=== PATIENT | male | born 1940 | race Caucasian/White ===

== ENCOUNTER 2022-09-04 09:48 | Outpatient (REF) | payer OTHER, SELFPAY ==
[2022-09-04 10:18] LABS: Anion Gap 16 (12-20); Blood Urea Nitrogen 16 mg/dL (9-16); Carbon Dioxide 24 mmol/L (22-29); Chloride 102 mmol/L (96-108); Estimated Glomerular Filt Rate > 60; Glucose Random 225 mg/dL (60-115); Potassium 4.1 mmol/L (3.3-5.1); Sodium 138 mmol/L (135-145)
== END 2022-09-04 09:49 | disposition home or self-care (01) ==
LOC: HO.HSH1N 09:48
PROVIDERS: Visit Provider Internal Medicine
DX: I48.91 Unspecified atrial fibrillation (principal)
CPT/HCPCS: 36415; 80048

== ENCOUNTER 2022-09-05 05:45 | Outpatient (REF) | payer OTHER, SELFPAY ==
[2022-09-05 07:36] LABS: MANUAL DIFF FLAG NO
[2022-09-05 07:41] LABS: Basophils Absolute Auto 0.1 X10*3/uL (0.0-0.2); Basophils Percent Auto 0.5 % (0-2); Eosinophils Percent Auto 0.1 % (0-4); Hemoglobin 13.5 g/dl (14.0-18.0); Imm Gran Abs Auto 0.09 X10*3/uL (0.00-0.03); Imm Gran Pct Auto 0.7 % (0.0-0.4); Lymphocytes Absolute Auto 2.1 X10*3/uL (1.2-4.9); Lymphocytes Percent Auto 15.9 % (20-40); Mean Corpuscular HGB Conc 32.9 g/dl (31.0-36.0); Mean Corpuscular Hemoglobin 29.8 pg (27.0-33.0); Mean Corpuscular Volume 90.5 fL (80.0-98.0); Mean Platelet Volume 10.7 fL (9.4-12.4); Monocytes Absolute Auto 1.2 X10*3/uL (0.1-1.2); Monocytes Percent Auto 9.2 % (2-11); Neutrophils Absolute Auto 9.6 x10*3/uL (2.0-8.3); Neutrophils Percent Auto 73.6 % (45-73); Platelet Count 235 X10*3/uL (160-400); Red Blood Count 4.53 X10*6/uL (4.60-5.80); Red Cell Distribution Width 13.6 % (11.0-16.0)
[2022-09-05 08:01] LABS: Anion Gap 14 (12-20); Blood Urea Nitrogen 24 mg/dL (9-16); Calcium 8.5 mg/dL (8.4-10.2); Carbon Dioxide 26 mmol/L (22-29); Chloride 102 mmol/L (96-108); Estimated Glomerular Filt Rate > 60; Glucose Fasting 149 mg/dL (60-99); Potassium 4.7 mmol/L (3.3-5.1); Sodium 137 mmol/L (135-145)
== END 2022-09-05 05:46 | disposition home or self-care (01) ==
LOC: HO.HSH1N 05:45
PROVIDERS: Visit Provider Internal Medicine
DX: R11.2 Nausea with vomiting, unspecified (principal)
CPT/HCPCS: 36415; 80048; 85025

== ENCOUNTER 2022-10-27 | Outpatient (REF) | payer OTHER, SELFPAY ==
[2022-10-27 08:18] LABS: Estimated Average Glucose 189 mg/dL; Hemoglobin A1c % 8.2 %
== END 2022-10-27 00:01 ==
LOC: HO.HSH3W
PROVIDERS: Visit Provider Internal Medicine Interventional Cardiology
DX: E11.9 Type 2 diabetes mellitus without complications (principal)
CPT/HCPCS: 36415; 83036

== ENCOUNTER 2023-01-13 05:35 | Outpatient (REF) | payer OTHER, SELFPAY ==
[2023-01-13 07:33] LABS: Estimated Average Glucose 229 mg/dL; Hemoglobin A1c % 9.6 %
[2023-01-13 08:04] LABS: Creatinine Urine 99.41 mg/dL
[2023-01-13 08:04] LABS: Alanine Aminotransferase 47 U/L (0-40); Albumin Level 3.4 g/dL (3.5-5.0); Alkaline Phosphatase 57 U/L (39-117); Anion Gap 14 (12-20); Aspartate Amino Transferase 18 U/L (5-37); Bilirubin Direct 0.2 mg/dL (0.0-0.5); Bilirubin Total 0.8 mg/dL (0.0-1.0); Blood Urea Nitrogen 17 mg/dL (9-16); Calcium 8.8 mg/dL (8.4-10.2); Carbon Dioxide 24 mmol/L (22-29); Chloride 105 mmol/L (96-108); Estimated Glomerular Filt Rate > 60; Glucose Random 265 mg/dL (60-115); Potassium 4.3 mmol/L (3.3-5.1); Sodium 139 mmol/L (135-145); Total Protein 5.4 g/dL (6.5-8.0)
== END 2023-01-13 05:36 | disposition home or self-care (01) ==
LOC: HO.HSH3W 05:35
PROVIDERS: Visit Provider Nurse Practitioner Acute Care
DX: E11.9 Type 2 diabetes mellitus without complications (principal)
CPT/HCPCS: 36415; 80053; 82043; 82248; 83036

== ENCOUNTER 2023-03-20 05:32 | Outpatient (REF) | payer OTHER, SELFPAY ==
[2023-03-20 07:55] LABS: Estimated Average Glucose 174 mg/dL; Hemoglobin A1c % 7.7 %
== END 2023-03-20 05:33 | disposition home or self-care (01) ==
LOC: HO.HSH3W 05:32
PROVIDERS: Nurse Practitioner; Visit Provider Internal Medicine Endocrinology, Diabetes & Metabolism
DX: E11.9 Type 2 diabetes mellitus without complications (principal)
CPT/HCPCS: 36415; 83036

== ENCOUNTER 2023-08-08 05:04 | Outpatient (REF) | payer OTHER, SELFPAY ==
[2023-08-08 06:24] LABS: MANUAL DIFF FLAG NO
[2023-08-08 06:28] LABS: Basophils Absolute Auto 0.1 X10*3/uL (0.0-0.2); Basophils Percent Auto 0.9 % (0-2); Eosinophils Absolute Auto 0.3 X10*3/uL (0.0-0.4); Eosinophils Percent Auto 3.1 % (0-4); Hematocrit 40.2 % (42.0-52.0); Hemoglobin 13.4 g/dl (14.0-18.0); Imm Gran Abs Auto 0.06 X10*3/uL (0.00-0.03); Imm Gran Pct Auto 0.7 % (0.0-0.4); Lymphocytes Absolute Auto 2.8 X10*3/uL (1.2-4.9); Lymphocytes Percent Auto 31.7 % (20-40); Mean Corpuscular HGB Conc 33.3 g/dl (31.0-36.0); Mean Corpuscular Hemoglobin 29.6 pg (27.0-33.0); Mean Corpuscular Volume 88.9 fL (80.0-98.0); Mean Platelet Volume 10.9 fL (9.4-12.4); Monocytes Absolute Auto 0.6 X10*3/uL (0.1-1.2); Monocytes Percent Auto 6.5 % (2-11); Neutrophils Percent Auto 57.1 % (45-73); Platelet Count 214 X10*3/uL (160-400); Red Blood Count 4.52 X10*6/uL (4.60-5.80); Red Cell Distribution Width 12.3 % (11.0-16.0); White Blood Count 8.8 X10*3/uL (4.8-10.8)
[2023-08-08 06:45] LABS: Alanine Aminotransferase 27 U/L (0-40); Albumin Level 3.5 g/dL (3.5-5.0); Alkaline Phosphatase 53 U/L (39-117); Anion Gap 15 (12-20); Aspartate Amino Transferase 14 U/L (5-37); Bilirubin Total 0.9 mg/dL (0.0-1.0); Blood Urea Nitrogen 15 mg/dL (9-16); Calcium 9.4 mg/dL (8.4-10.2); Carbon Dioxide 23 mmol/L (22-29); Chloride 107 mmol/L (96-108); Cholesterol 119 mg/dL (<200); Estimated Glomerular Filt Rate > 60; Glucose Fasting 225 mg/dL (60-99); HDL Cholesterol 33 mg/dL (>40); LDL Cholesterol Calculated 57 mg/dL (<100); Potassium 3.9 mmol/L (3.3-5.1); Sodium 141 mmol/L (135-145); Triglycerides 148 mg/dL (<150)
[2023-08-08 07:01] LABS: Estimated Average Glucose 235 mg/dL; Hemoglobin A1c % 9.8 % (<6.0)
== END 2023-08-08 05:05 | disposition home or self-care (01) ==
LOC: HO.HSH3W 05:04
PROVIDERS: Visit Provider Nurse Practitioner
DX: E11.9 Type 2 diabetes mellitus without complications (principal); I25.10 Atherosclerotic heart disease of native coronary artery without angina pectoris; E78.5 Hyperlipidemia, unspecified
CPT/HCPCS: 36415; 80053; 80061; 83036; 85025

== ENCOUNTER 2023-11-13 05:04 | Outpatient (REF) | payer OTHER, SELFPAY ==
[2023-11-13 06:39] LABS: MANUAL DIFF FLAG NO
[2023-11-13 06:53] LABS: Basophils Absolute Auto 0.1 X10*3/uL (0.0-0.2); Basophils Percent Auto 0.7 % (0-2); Eosinophils Absolute Auto 0.2 X10*3/uL (0.0-0.4); Eosinophils Percent Auto 2.6 % (0-4); Hematocrit 39.7 % (42.0-52.0); Hemoglobin 13.5 g/dl (14.0-18.0); Imm Gran Abs Auto 0.09 X10*3/uL (0.00-0.03); Lymphocytes Absolute Auto 2.8 X10*3/uL (1.2-4.9); Lymphocytes Percent Auto 30.5 % (20-40); Mean Corpuscular Hemoglobin 30.3 pg (27.0-33.0); Mean Platelet Volume 10.6 fL (9.4-12.4); Monocytes Absolute Auto 0.6 X10*3/uL (0.1-1.2); Monocytes Percent Auto 6.2 % (2-11); Neutrophils Absolute Auto 5.3 x10*3/uL (2.0-8.3); Platelet Count 212 X10*3/uL (160-400); Red Blood Count 4.46 X10*6/uL (4.60-5.80); Red Cell Distribution Width 12.4 % (11.0-16.0)
[2023-11-13 07:08] LABS: Estimated Average Glucose 212 mg/dL
[2023-11-13 07:12] LABS: Alanine Aminotransferase 29 U/L (0-40); Albumin Level 3.4 g/dL (3.5-5.0); Alkaline Phosphatase 51 U/L (39-117); Anion Gap 14 (12-20); Aspartate Amino Transferase 13 U/L (5-37); Bilirubin Total 0.8 mg/dL (0.0-1.0); Blood Urea Nitrogen 14 mg/dL (9-16); Calcium 9.1 mg/dL (8.4-10.2); Carbon Dioxide 23 mmol/L (22-29); Chloride 106 mmol/L (96-108); Estimated Glomerular Filt Rate > 60; Glucose Fasting 176 mg/dL (60-99); Sodium 139 mmol/L (135-145); Total Protein 5.7 g/dL (6.5-8.0)
== END 2023-11-13 05:05 | disposition home or self-care (01) ==
LOC: HO.HSH3W 05:04
PROVIDERS: Visit Provider Nurse Practitioner Acute Care
DX: E11.9 Type 2 diabetes mellitus without complications (principal); I48.91 Unspecified atrial fibrillation
CPT/HCPCS: 36415; 80053; 83036; 85025

== ENCOUNTER 2024-05-08 06:08 | Outpatient (REF) | payer OTHER, SELFPAY ==
[2024-05-08 06:41] LABS: Estimated Average Glucose 192 mg/dL; Hemoglobin A1c % 8.3 % (<6.0)
[2024-05-08 06:43] LABS: Alanine Aminotransferase 21 U/L (0-40); Albumin Level 3.6 g/dL (3.5-5.0); Alkaline Phosphatase 49 U/L (39-117); Anion Gap 11 (12-20); Aspartate Amino Transferase 11 U/L (5-37); Bilirubin Total 0.9 mg/dL (0.0-1.0); Blood Urea Nitrogen 20 mg/dL (9-16); Calcium 9.5 mg/dL (8.4-10.2); Carbon Dioxide 25 mmol/L (22-29); Chloride 109 mmol/L (96-108); Estimated Glomerular Filt Rate > 60; Glucose Random 109 mg/dL (60-115); Potassium 4.1 mmol/L (3.3-5.1); Sodium 141 mmol/L (135-145); Total Protein 5.9 g/dL (6.5-8.0)
== END 2024-05-08 06:09 | disposition home or self-care (01) ==
LOC: HO.HSH3W 06:08
PROVIDERS: Visit Provider Nurse Practitioner
DX: E11.9 Type 2 diabetes mellitus without complications (principal)
CPT/HCPCS: 36415; 80053; 83036

== ENCOUNTER 2024-08-22 06:04 | Outpatient (REF) | payer OTHER, SELFPAY ==
[2024-08-22 06:08] LABS: MANUAL DIFF FLAG NO
[2024-08-22 06:26] LABS: Basophils Absolute Auto 0.1 X10*3/uL (0.0-0.2); Basophils Percent Auto 0.7 % (0-2); Eosinophils Absolute Auto 0.3 X10*3/uL (0.0-0.4); Eosinophils Percent Auto 3.4 % (0-4); Hemoglobin 13.9 g/dl (14.0-18.0); Imm Gran Abs Auto 0.04 X10*3/uL (0.00-0.03); Imm Gran Pct Auto 0.4 % (0.0-0.4); Lymphocytes Absolute Auto 2.9 X10*3/uL (1.2-4.9); Lymphocytes Percent Auto 31.8 % (20-40); Mean Corpuscular HGB Conc 33.9 g/dl (31.0-36.0); Mean Corpuscular Hemoglobin 30.2 pg (27.0-33.0); Mean Corpuscular Volume 88.9 fL (80.0-98.0); Mean Platelet Volume 10.7 fL (9.4-12.4); Monocytes Absolute Auto 0.6 X10*3/uL (0.1-1.2); Monocytes Percent Auto 6.4 % (2-11); Neutrophils Absolute Auto 5.2 x10*3/uL (2.0-8.3); Neutrophils Percent Auto 57.3 % (45-73); Platelet Count 206 X10*3/uL (160-400); Red Blood Count 4.61 X10*6/uL (4.60-5.80); Red Cell Distribution Width 12.9 % (11.0-16.0); White Blood Count 9.1 X10*3/uL (4.8-10.8)
[2024-08-22 06:36] LABS: Alanine Aminotransferase 37 U/L (0-40); Albumin Level 3.5 g/dL (3.5-5.0); Alkaline Phosphatase 50 U/L (39-117); Anion Gap 15 (12-20); Aspartate Amino Transferase 16 U/L (5-37); Bilirubin Total 1.3 mg/dL (0.0-1.0); Blood Urea Nitrogen 29 mg/dL (9-16); Calcium 9.4 mg/dL (8.4-10.2); Carbon Dioxide 23 mmol/L (22-29); Chloride 104 mmol/L (96-108); Cholesterol 115 mg/dL (<200); Estimated Glomerular Filt Rate > 60; Glucose Random 305 mg/dL (60-115); Potassium 4.3 mmol/L (3.3-5.1); Sodium 138 mmol/L (135-145)
[2024-08-22 07:04] LABS: Prostate Specific Antigen 0.56 ng/mL (<0.05-4.0); Vitamin B12 381 pg/mL (200-900)
[2024-08-22 07:13] LABS: Estimated Average Glucose 220 mg/dL; Hemoglobin A1C 286.2529 umol/L; Hemoglobin A1c % 9.3 % (<6.0); Total Hemoglobin (HGBA1C) 3646.8802 umol/L
== END 2024-08-22 06:05 | disposition home or self-care (01) ==
LOC: HO.HSH3W 06:04
PROVIDERS: Visit Provider Nurse Practitioner
DX: Z12.5 Encounter for screening for malignant neoplasm of prostate (principal); E11.9 Type 2 diabetes mellitus without complications; I63.9 Cerebral infarction, unspecified
CPT/HCPCS: 36415; 80053; 82465; 82607; 83036; 84153; 85025

== ENCOUNTER 2024-12-18 07:06 | Outpatient (REF) | payer MEDICAID, SELFPAY ==
--- OUTSIDE RECORDS SUMMARY | 2024-12-18 07:10 | XMS_ITS | Encounter Summary ---
Author Name [facility] [place] [facility] [place] [facility] [place] Address [address] [place] [address] Care Team Providers Care Ship Cleaner Name Role Phone HERACLIO LUNA Primary Care Provider Unav ailable YOHAN, ALESSANDRA Unavailable Unavailable EMERALD MONIQUE Primary Care Provider Unavail able Insurance Providers: All historical and current Section Date Range: From patient's date of to the date document was created. This section includes the names of all active insurance providers for the patient. Insurance Provider Type of Coverage Plan Name Start of Policy Coverage End of Policy Coverage Group Number Member ID Insurance Provider's Telephone Number Policy [place]'s Name Patient's Relationship to Policy [place] [facility] (WNR) MEDICARE ADVANTAGE [facility] (WNR) February 07, 2020 [id number] SHARONDA,TONI LLY PATIENT [facility] (WNR) MEDICARE ADVANTAGE [facility] (WNR) February 07, 2020 [id number] SHARONDA,BI LLY PATIENT [facility] (WNR) MEDICARE [facility] (WNR) February 07, 2020 [id number] TONI MCDONOUGH PATIENT Selected Encounter This section includes the information on record at [place] for the Encounter. Date/Time Encounter Type Encounter Description Reason Pro vider Source Dec 03, 2024 07:19 AM Outpatient Encounter [facility] Encounter Template Text not used by [place] Plan of Treatment: Future Appointments (+ 6 months) and Future Tests (+/- 45 days) The Plan of Treatment section includes future care activities for the patient from all [place] treatmentfacilities. This section includes future appointments and future orders which are active, pending or scheduled. Future Appointments This section includes appointments that were scheduled to occur 6 months from the date of the Encounter, up to a maximum of 20 appointments. The data comes from all [place] treatment facilities. Appointment Date/Time Appointment Type Appointme nt Facility Name Dec 17, 2024 01:30 PM AMBULATORY - REH[facility] MEDICIN [facility] [place] [facility] Encounter Notes: All associated encounter notes This section contains the clinical notes associated to the Encounter. Date/Time Encounter Note(s) Provider Source Dec 03, 2024 07:19 AM OCCUPATIONAL THERA PY NOTE: LOCAL TITLE: OCCUPATIONAL THERAPY STANDARD TITLE: OCCUPATIONAL THERAPY NOTE DATE OF NOTE: DEC 03, 2024@07:19 ENTRY DATE: DEC 03, 2024@07:19:11 AUTHOR: THEODORE NUNO EXP COSIGNER: URGENCY: STATUS: COMPLETED OCCUPATIONAL THERAPY Has ADDENDA manager outreach, [address], requesting evaluation for to see if a power tilt option can be added to current [id number] in order for pt to be more independent with seating functions. Type of chair issued: Quickie IRIS 19 x [address] back, ELR's and Héctor Fusion cushion Serial #: [id number] Appointment scheduled for 12/17/24 @ 1:00. Will be seen at the [facility]. /jori NUNO OTR/L OCCUPATIONAL THERAPIST Signed: 12/03/2024 07:21 12/03/2024 ADDENDUM STATUS: COMPLETED Correction- appointment at 1:30. /jori NUNO OTR/L OCCUPATIONAL THERAPIST Signed: 12/03/2024 07:21 THEODORE NUNO [facility]
--- OUTSIDE RECORDS SUMMARY | 2024-12-18 07:10 | XMS_ITS | Continuity of Care Document ---
Author Name [facility] Organization [facility] Care Team Providers Care Binding Dyer Name Role Phone [facility] Unavailable Unavailable Problems Combined list of problems from Department of Defense and Veterans Affairs facilities. It does not include entries that were removed or entered in error. Problem Status Onset Date Problem Type Date of Resolution Comments Source AF- Atrial Fibrillation ([facility] [id number]) Active Condition [place] Atrial fibrillation Active Condition [facility] Benign prostatic hyperplasia Active Condition [place] CAD - Coronary artery disease Active Condition [place] Cerebral infarction Active Condition [place] Cerebral infarction Active Condition Sep 07, 2020 Entered By: JUDITH LUCIO [facility] Entered By: ÁNGEL BARLOW Comment: CVA, approx MARCH 28 [facility] Coronary artery disease Active Condition Oct 28, 2020 Entered By: BRYAN SARAVIA Comment: Stent LAD 05/2017 [place] 2020 Entered By: BRYAN SARAVIA Comment: L hemiparesis/ne uropathy [facility] [place] [facility] Diabetes mellitus Active Condition [place] elderly Active Condition [place] Hyperlipidemia Active Condition [place] Hyperlipidemia ([facility] [id number]) Active Condition [facility] [place] [facility] Type 2 diabetes mellitus Active [facility] Vitamin D Deficiency ([facility] [id number]) Active Condition [place] Diagnosis: ICD-10-CM I63.9 Cerebral infarction, unspecified Active Diagnosis [facility] [place] [facility] Medications Combined list of outpatient medications from Department of Defense and Veterans Affairs facilities.Medications provided include 1) outpatient medications from the last 15 months, and 2) patient-reported medications. Medication Details Route Status Patient Instructions Prescription Expires Prescription Number Last Dispense Date Ordering Provider Order Date Order Qty Source ACETAMINOPH EN 325MG TAB TAKE TWO TABLETS BY MOUTH EVERY DAY NEEDED ORAL ACTIVE EMERALD MONIQUE 2014 GARC[facility] ASPIRIN 81MG TAB,EC TAKE ONE TABLET BY MOUTH EVERY DAY ORAL ACTIVE SCHWAIEMERALD CORTES 2014 GARCIA BISACODYL 10MG SUPP,RTL INSERT 1 SUPPOSIT ORY(IES) IN RECTUM EVERY DAY NEEDED RECTAL ACTIVE SCHWAIEMERALD CORTES A 2019 GARCIA DOCUSATE NA 50MG/SENNOS IDES 8.6MG TAB TAKE ONE TABLET BY MOUTH TWICE A DAY NEEDED ORAL ACTIVE SCHWAIEMERALD CORTES A 2019 G[facility]IA INSULIN,ASP ART FLEXPEN (*HIGH ALERT*) INJ INJECT 5 UNITS UNDER THE SKIN TID WITH MEALS SUBCUT ANEOUS ACTIVE SCHWAIGER EMERALD A 2019 G[facility]IA INSULIN,GLA RGINE VIAL (*HIGH ALERT*) INJ INJECT 40 UNITS UNDER THE SKIN NIGHTLY SUBCUT ANEOUS ACTIVE SCHWAIJANAY CORTESH A 2019 G[facility]IA MELATONIN 3MG CAP/TAB TAKE 1 BY MOUTH AT BEDTIME ORAL ACTIVE SCHWAIEMERALD CORTES 2019 G[facility] Immunizations Combined list of available immunizations from the Department of Defense and Veterans Affairs facilities. Immunization Series Date Given Administered By Site Reaction Lot Number CVX Code Drug Web Press Jogger Status Comments Source INFLUENZA, HIGH-DOSE, QUADRIVALENT 2019 197 complet ed [facility] INFLUENZA, UNSPECIFIED FORMULATION 2019 88 complet ed [facility] [place] [facility] PNEUMOCOCCAL CONJUGATE PCV 13 2014 133 complet ed [place] INFLUENZA, PRESERVATIVE FREE (HISTORICAL) 2013 88 complet ed [place] PNEUMOCOCCAL POLYSACCHARID E PPV23 2012 33 complet ed [place] TDAP 2012 115 complet ed [place] HEP A-HEP B 2011 104 complet ed Recieved faxed immunizat ion records. Copy is in scanning unit. JULIO CÉSAR Encounters Combined list of: 1) Encounters from Department of Veterans Affairs facilities going backup to the last 18 months, not all VA inpatient encounters are included; 2) Encounters from the Department of Defense facilities going backup to 280 months. Location Location Details Encounter Type Encounter Number Reason For Visit Attending Provider ADM Date DC Date Status Disposition Source [facility] [place] [facility] Outpatient Encounter [id number] 07/04 [facility] Outpatient Encounter [id number] 11/01 [facility] [id number] Diagnos is: ICD-10- CM I63.9 Cerebra l infarct ion, unspeci fied NUNO,BRANDON ICA L 11/01 [facility] Out[facility] Encounter [id number] 01/16 [facility] [id number] Diagnos is: ICD-10- CM I63.9 Cerebra l infarct ion, unspeci fied NUNO,BRANDON ICA L 04/04 [facility] [place] [facility] Outpatient Encounter [id number] 12/03 [facility] [place] [facility] TRAINING [id number] Diagnos is: ICD-10- CM I63.9 Cerebra l infarct ion, unspeci fied NUNO,BRANDON ICA L 12/17 [facility] [place] [facility] Social History Combined list of available smoking, tobacco, and other social history from Department of Defense and Veterans Affairs facilities. Social History Type Response Date Comment [facility] e Tobacco smoking status [facility] VA-TOBACCO NEVER USED 09/07/20 [place] History of tobacco use VA-TOBACCO FORMER USER 05/08/2019 [place] History of tobacco use DAY TOBACCO FORME R USER >7 YEARS 05/01/2018 [place] History of tobacco use DAY TOBACCO FORME R USER >7 YEARS 05/10/2017 [place] History of tobacco use DAY TOBACCO FORME R USER >7 YEARS 03/03/2015 [facility]
--- OUTSIDE RECORDS SUMMARY | 2024-12-18 07:10 | XMS_ITS | Encounter Summary ---
Author Name [facility] [place] [facility] [place] [facility] [place] Address [address] [place] [address] Care Team Providers Care Electronic Scale Assembler And Tester Name Role Phone EMERALD MONIQUE Primary Care Provider Unavail HERACLIO Paz Primary Care Provider Unav ailable ALESSANDRA ALMANZAR Unavailable Unavailable Insurance Providers: All historical and current Section Date Range: From patient's date of to the date document was created. This section includes the names of all active insurance providers for the patient. Insurance Provider Type of Coverage Plan Name Start of Policy Coverage End of Policy Coverage Group Number Member ID Insurance Provider's Telephone Number Policy [place]'s Name Patient's Relationship to Policy [place] [facility] (WNR) MEDICARE ADVANTAGE [facility] (WNR) February 07, 2020 [id number] SHARONDA,BI LLY PATIENT [facility] (WNR) MEDICARE [facility] (WNR) February 07, 2020 [id number] 73 SHARONDA,BI LLY PATIENT [facility] (WNR) MEDICARE ADVANTAGE [facility] (WNR) February 07, 2020 [id number] TONI MCDONOUGH PATIENT Selected Encounter This section includes the information on record at [place] for the Encounter. Date/Time Encounter Type Encounter Description Reason Provider Source Dec 17, 2024 01:30 PM [facility]ELCHAIR [facility] TRA[facility] ICD-10-CM I63.9 Cerebral infarction, unspecified THEODORE NUNO IHE Encounter Template Text not used by VA Assessments - Encounter Diagnoses This section includes the primary and secondary diagnoses documented for the Encounter. Date/Time Primary/Secondary Diagnosis Diagnosis Name Provider Source Dec 17, 2024 03:39 PM PRIMARY Cerebral infarction, unspecified [facility]O [facility]
[2024-12-18 07:37] LABS: Estimated Average Glucose 194 mg/dL; Hemoglobin A1c % 8.4 % (<6.0); Total Hemoglobin (HGBA1C) 3445.8706 umol/L
== END 2024-12-18 07:07 | disposition home or self-care (01) ==
LOC: HO.HSH 07:06
PROVIDERS: Visit Provider Nurse Practitioner
DX: E11.9 Type 2 diabetes mellitus without complications (principal)
CPT/HCPCS: 36415; 83036

== ENCOUNTER 2025-04-19 06:50 | Outpatient (REF) | payer MEDICARE, MEDICAID, SELFPAY | END 2025-04-19 06:51 | disposition home or self-care (01) | LOC: HO.HSH3N 06:50 | PROVIDERS: Visit Provider Nurse Practitioner | DX: Z13.89 Encounter for screening for other disorder (principal) | CPT/HCPCS: 82043; 82570 ==

== ENCOUNTER 2025-05-28 06:44 | Outpatient (REF) | payer MEDICARE, MEDICAID, SELFPAY ==
--- OUTSIDE RECORDS SUMMARY | 2025-04-16 06:56 | XMS_ITS | Continuity of Care Document ---
Author Name [facility] Organization [facility] Care Team Providers Care Social Professionals Name Role Phone [facility] Unavailable Unavailable Problems Combined list of problems from Department of Defense and Veterans Affairs facilities. It does not include entries that were removed or entered in error. Problem Status Onset Date Problem Type Date of Resolution Comments Source AF- Atrial Fibrillation ([facility] [id number]) Active Condition [place] Atrial fibrillation Active Condition [facility] Benign prostatic hyperplasia Active Condition [place] CAD - Coronary artery disease Active Condition [place] Cerebral infarction Active Condition [place] Cerebral infarction Active Condition Sep 07, 2020 Entered By: JUDITH LUCIO Comment[facility] Entered By: ÁNGEL BARLOW Comment: CVA, approx MARCH 28 [facility] Coronary artery disease Active Condition Oct 28, 2020 Entered By: BRYAN SARAVIA Comment: Stent LAD 05/2017 [place] 2020 Entered By: RBYAN SARAVIA Comment: L hemiparesis/ne uropathy [facility] [place] [facility] Diabetes mellitus Active Condition [place] elderly Active Condition [place] Hyperlipidemia Active Condition [place] Hyperlipidemia ([facility] 21428687) Active Condition [facility] [place] [facility] Type 2 diabetes mellitus Active [facility] Vitamin D Deficiency ([facility] 9413307) Active Condition [place] Diagnosis: ICD-10-CM I63.9 Cerebral infarction, unspecified Active Diagnosis [facility] [place] [facility] Medications Combined list of outpatient medications [...] Site Reaction Lot Number CVX Code Drug Radiation Safety Officer Status Comments Source INFLUENZA, HIGH-DOSE, QUADRIVALENT 2019 197 complet ed [facility] INFLUENZA, UNSPECIFIED FORMULATION 2019 88 complet ed [facility] [place] [facility] PNEUMOCOCCAL CONJUGATE PCV 13 2014 133 complet ed [place] INFLUENZA, PRESERVATIVE FREE (HISTORICAL) 2013 88 complet ed [place] PNEUMOCOCCAL POLYSACCHARID E PPV23 2012 33 complet ed [place] TDAP 2012 115 complet ed [place] HEP A-HEP B 2011 104 complet ed [...] ADM Date DC Date Status Disposition Source [facility] [place] [facility] Outpatient Encounter [id number] 01/16 [facility] [place] [facility] [place] [facility] [id number] Diagnos is: ICD-10- CM I63.9 Cerebra l infarct ion, unspeci fied NUNO,BRANDON ICA L 04/04 [facility] [place] [facility] [place] [facility] Outpatient Encounter [id number] 12/03 [facility] [place] [facility] [place] [facility] TRAIN[facility] [id number] Diagnos is: ICD-10- CM I63.9 Cerebra l infarct ion, unspeci fied NUNO,BRANDON ICA L 12/17 [facility] [place] [facility] [place] [facility] Outpatient Encounter [id number] 04/16 [facility] [place] [facility] Social History Combined list of available smoking, tobacco, and other social history from Department of Defense and Veterans Affairs facilities. Social History Type Response Date Comment [facility] Tobacco smoking status [facility] VA-TOBACCO NEVER USED 09/07/[address] [place] [address] History of tobacco use VA-TOBACCO FORMER USER 05/08/2019 [facility] History of tobacco use DAY TOBACCO FORME R USER >7 YEARS 05/01/2018 [place] History of tobacco use DAY TOBACCO FORME R USER >7 YEARS 05/10/2017 [place] History of tobacco use DAY TOBACCO FORME R USER >7 YEARS 03/03/2015 [facility]
[2025-05-28 06:47] LABS: MANUAL DIFF FLAG NO
--- OUTSIDE RECORDS SUMMARY | 2025-05-28 06:47 | XMS_ITS | Clinical Summary ---
Author Organization [employer] Address [address] [place] [address] Care Team Providers Care Gasateria Attendant Name Role Phone Unavailable Primary Care Provider Unavailabl e Allergies No known active allergies Medications acetaminophen (Tylenol) 325 MG tablet Take by mouth. 03/03/2015 Active bisacodyl (Dulcolax) 10 MG suppository Insert into the rectum. 06/23/2020 Active senna-docusate (Meka-Colace) 8.6-50 MG tablet Take 1 tablet by mouth if needed in the morning and at bedtime. 06/23/2020 Active aspirin 81 MG EC tablet Take 81 mg by mouth Once per day. 03/03/2015 Active Active Problems Problem Noted Date Diagnosed Date Arteriosclerosis of coronary artery 03/19/2025 Overview (03/19/2025): Oct 28, 2020 Entered By: LAURA SARAVIA Comment: Stent LAD 05/2017 [place] Oct 28, 2020 Entered By: LAURA SARAVIA Comment: L hemiparesis/neuropathy Atrial fibrillation 03/19/2025 Benign prostatic hyperplasia 03/19/2025 Cerebral infarction 03/19/2025 Overview (03/19/2025): Sep 07, 2020 Entered By: AUGUSTINE LUCIO Comment: Left sided weakness Oct 05, 2020 Entered By: ÁNGEL BARLOW Comment: CVA, approx MARCH 28 When in [place] Frail elderly 03/19/2025 Hyperlipidemia 03/19/2025 Type 2 diabetes mellitus 03/19/2025 Vitamin D deficiency 03/19/2025 Encounters Date Type Department Care Team Description 03/19/2025 1:00 PM EDT Office Visit [facility] [address] [place] [address] Walter Oliveros DMD from Last 3 Months Social History Tobacco Use Types Packs/Day Years Used Date Smoking Tobacco: Unknown Tobacco Cessation:Counseling Given: Not Answered Alcohol Use Standard Drinks/Week Comments Defer 0 (1 standard drink = 0.6 oz pur e alcohol) Sex and Gender Information Value Date Recorded Sex Assigned at Male 03/17/2025 9:56 AM EDT Legal Sex Male 3:13 PM EDT Gender Identity Male 03/17/2025 9:56 AM EDT Sexual Orientation Straight 03/17/2025 9: 56 AM EDT Plan of Treatment Health Maintenance Due Date Last Done Comments Dental Prophylaxis 1940 Dental X-Ray: Bitewings 1940 Dental X-Ray: Full Mouth 1940 Depression Screening 1940 Diabetes: Hemoglobin A1C 1940 Lipid Panel 1940 SDOH Screening 1940 Diabetes: Foot Exam 1950 Eye Exam 1950 Alcohol/Substance Use Screening 1952 Diabetes: Urine Protein Screening 1959 Zoster Vaccines (1 of 2) 1990 Hepatitis B Vaccines (2 of 3 - Hep B Twinrix 3-dose series) 10/08/2012 09/10/2012 RSV Patients and Patients Aged 60 years or older (1 - 1-dose 75+ series) 2015 DTaP/Tdap/Td Vaccines (2 - T d or Tdap) 02/06/2023 02/06/2013 COVID-19 Vaccine (1 - 2023-2 5 season) 2024 Influenza Vaccine (#1) 2025 , 07/09/2014 Dental Oral Exam 09/19/2025 03/19/2025 Tobacco Screening 03/19/2026 03/19/2025 Hepatitis A Vaccines Aged Out 09/10/2012 No long er eligible based on patient's age to complete this topic Pneumococcal Vaccine: 50+ Years Completed 03/03/2015, 07/21/2013 HIB Vaccines Aged Out No longer eligi ble based on patient's age to complete this topic HPV Vaccines Aged Out No longer eligi ble based on patient's age to complete this topic IPV Vaccines Aged Out No longer eligi ble based on patient's age to complete this topic Meningococcal B Vaccine Aged Out No l onger eligible based on patient's age to complete this topic Meningococcal Vaccine Aged Out No liliana adonay eligible based on patient's age to complete this topic RSV under 20 months Aged Out No longe r eligible based on patient's age to complete this topic Rotavirus Vaccines Aged Out No longer eligible based on patient's age to complete this topic Procedures Procedure Name Priority Date/Time Associated Diagnosis Comments COMPREHENSIVE ORAL EVALUATION - NEW OR ESTABLISHED PATIENT Routine 03/19/2025 1:00 PM EDT from Last 3 Months
[2025-05-28 06:59] LABS: Hematocrit 39.4 % (42.0-52.0); Hemoglobin 12.9 g/dl (14.0-18.0); Imm Gran Abs Auto 0.09 X10*3/uL (0.00-0.03); Imm Gran Pct Auto 1.3 % (0.0-0.4); Lymphocytes Absolute Auto 2.3 X10*3/uL (1.2-4.9); Mean Corpuscular HGB Conc 32.7 g/dl (31.0-36.0); Mean Corpuscular Hemoglobin 29.3 pg (27.0-33.0); Mean Corpuscular Volume 89.3 fL (80.0-98.0); NRBC Abs Auto 0.000 X10*3/uL (0.0-0.012); NRBC Pct Auto 0.0 /100WBC (0.0-0.2); Platelet Count 237 X10*3/uL (160-400); Red Blood Count 4.41 X10*6/uL (4.60-5.80); White Blood Count 7.2 X10*3/uL (4.8-10.8)
[2025-05-28 07:31] LABS: Alanine Aminotransferase 43 U/L (0-40); Albumin Level 3.7 g/dL (3.5-5.0); Alkaline Phosphatase 54 U/L (39-117); Anion Gap 12 (12-20); Aspartate Amino Transferase 32 U/L (5-37); Blood Urea Nitrogen 13 mg/dL (9-16); Calcium 9.0 mg/dL (8.4-10.2); Carbon Dioxide 26 mmol/L (22-29); Chloride 104 mmol/L (96-108); Cholesterol 118 mg/dL (<200); Estimated Glomerular Filt Rate > 60; HDL Cholesterol 31 mg/dL (>40); Potassium 4.0 mmol/L (3.3-5.1); Sodium 138 mmol/L (135-145); Total Protein 5.9 g/dL (6.5-8.0); Triglycerides 182 mg/dL (<150)
[2025-05-28 07:34] LABS: Hemoglobin A1C 316.2932 umol/L; Total Hemoglobin (HGBA1C) 3370.0733 umol/L
== END 2025-05-28 06:45 | disposition home or self-care (01) ==
LOC: HO.HSH3W 06:44
PROVIDERS: Nurse Practitioner; Visit Provider Nurse Practitioner Acute Care
DX: E11.65 Type 2 diabetes mellitus with hyperglycemia (principal); E78.5 Hyperlipidemia, unspecified; E55.9 Vitamin D deficiency, unspecified; I67.9 Cerebrovascular disease, unspecified
CPT/HCPCS: 36415; 80053; 80061; 82306; 83036; 85025

== ENCOUNTER 2025-09-09 06:40 | Outpatient (REF) | payer MEDICARE, MEDICAID, SELFPAY ==
--- OUTSIDE RECORDS SUMMARY | 2025-09-09 06:43 | XMS_ITS | Clinical Summary ---
Author Organization [employer] Address [address] [place] [address] Care Team Providers Care Director Global Market Research Name Role Phone Unavailable Primary Care Provider [...] LAURA SARAVIA Comment: L hemiparesis/neuropathy Atrial fibrillation ([facility]/HCC) 03/19/2025 Benign prostatic hyperplasia 03/19/2025 Cerebral infarction 03/19/2025 Overview (03/19/2025): Sep 07, 2020 Entered By: AUGUSTINE LUCIO Comment: Left sided weakness Oct 05, 2020 Entered By: ÁNGEL BARLOW Comment: CVA, approx MARCH 28 When in [place] Frail elderly 03/19/2025 Hyperlipidemia 03/19/2025 Type 2 diabetes mellitus 03/19/2025 Vitamin D deficiency 03/19/2025 Social History Tobacco Use Types Packs/Day Years [...] Eye Exam 1950 Alcohol/Substance Use Screening 1952 DTaP/Tdap/Td Vaccines (1 - Tdap) 1959 Diabetes: Urine Protein Screening 1959 Pneumococcal Vaccine: 50+ Ye ars (1 of 2 - PCV) 1959 Zoster Vaccines (1 of 2) 1990 RSV Patients and Pa tients Aged 60 years or older (1 - 1-dose 75+ series) 2015 COVID-19 Vaccine (1 - 2024-2 6 season) 2025 Influenza Vaccine (#1) 2025 Dental Oral Exam 09/19/2025 03/19/2025 Tobacco Screening 03/19/2026 03/19/2025 HIB Vaccines Aged Out No longer eligi ble based on patient's age to complete this topic HPV Vaccines Aged Out No longer eligi ble based on patient's age to complete this topic Hepatitis A Vaccines Aged Out No long er eligible based on patient's age to complete this topic Hepatitis B Vaccines Aged Out No long er eligible based on patient's [...] 1:00 PM EDT from Last 3 Months or Most Recently Relevant to Health Maintenance
[2025-09-09 07:30] LABS: Anion Gap 13 (12-20); Blood Urea Nitrogen 15 mg/dL (9-16); Calcium 9.3 mg/dL (8.4-10.2); Carbon Dioxide 25 mmol/L (22-29); Chloride 106 mmol/L (96-108); Estimated Glomerular Filt Rate > 60; Potassium 4.2 mmol/L (3.3-5.1); Sodium 140 mmol/L (135-145)
== END 2025-09-09 06:41 | disposition home or self-care (01) ==
LOC: HO.HSH3W 06:40
PROVIDERS: Visit Provider Nurse Practitioner
DX: E11.9 Type 2 diabetes mellitus without complications (principal)
CPT/HCPCS: 36415; 80048; 83036